=== PATIENT | male | born 1990 | race African-American/Black ===

== ENCOUNTER 2019-02-22 23:38 | Emergency (ER) | payer SELFPAY ==
[~2019-02-22] VITALS: Ht 193 cm; Wt 87.3 kg
[2019-02-22 23:57] VITALS: BP 142/86
[2019-02-23] MEDS ORDERED: CLINDAMYCIN HCL 150 MG CAPSULE PO ONE (00:15)
[2019-02-23] MEDS ORDERED: ACETAMINOPHEN 500 MG TABLET PO ONE (00:15)
[2019-02-23] MEDS ORDERED: IBUPROFEN 600 MG TABLET PO ONE (00:15)
== END 2019-02-23 00:37 | disposition home or self-care (01) ==
LOC: EMS 23:39
DX: K04.7 Periapical abscess without sinus (principal); F17.210 Nicotine dependence, cigarettes, uncomplicated